=== PATIENT | female | born 1995 | race Caucasian/White ===

== ENCOUNTER 2021-09-26 14:10 | Observation (INO) | payer OTHER ==
[~2021-09-26] VITALS: Ht 177.8 cm; Wt 117.9 kg
[2021-09-26] MEDS ORDERED: PNV1TABL5 PO (15:12)
[2021-09-26] MEDS ORDERED: ASPI-1749 PO (15:12)
[2021-09-26] MEDS ORDERED: TRA200 PO (15:12)
[2021-09-26 15:52] VITALS: BP 117/57
== END 2021-09-26 15:35 | disposition home or self-care (01) ==
LOC: MLD 14:10
PROVIDERS: ADMIT Obstetrics & Gynecology; ATTEND Obstetrics & Gynecology
DX: O36.8120 Decreased fetal movements, second trimester, not applicable or unspecified (principal); Z20.822 Contact with and (suspected) exposure to COVID-19; Z3A.23 23 weeks gestation of pregnancy
CPT/HCPCS: 59025; 81000; 87426; G0378

== ENCOUNTER 2021-12-02 20:20 | Observation (INO) | payer OTHER ==
[~2021-12-02] VITALS: Ht 177.8 cm; Wt 118.8 kg
[~2021-12-02 20:20] MED LIST: ASPI-1749 PO; PNV1TABL5 PO; TRA200 PO
[2021-12-02 21:02] VITALS: BP 126/64
== END 2021-12-02 22:45 | disposition home or self-care (01) ==
LOC: MLD 20:20
PROVIDERS: ADMIT Obstetrics & Gynecology; ATTEND Obstetrics & Gynecology
DX: O99.891 Other specified diseases and conditions complicating pregnancy (principal); Z20.822 Contact with and (suspected) exposure to COVID-19; M54.50 Low back pain, unspecified; O36.8130 Decreased fetal movements, third trimester, not applicable or unspecified; Z3A.32 32 weeks gestation of pregnancy
CPT/HCPCS: 59025; 76819; 81000; 87426; G0378; Q0092

== ENCOUNTER 2021-12-14 14:10 | Observation (INO) | payer OTHER ==
[~2021-12-14] VITALS: Ht 177.8 cm; Wt 118.4 kg
[2021-12-14 15:22] LABS: BASOPHILS % (AUTO) 0.5 % (0.0-2.0); EOSINOPHILS # (AUTO) 0.1 K/uL (0-0.4); EOSINOPHILS % (AUTO) 0.8 % (0.0-4.0); HEMATOCRIT 32.9 % (36-48); LYMPHOCYTES # (AUTO) 1.3 K/uL (2.5-16.5); LYMPHOCYTES % (AUTO) 18.4 % (20.5-51.1); MEAN CORPUSCULAR HEMOGLOBIN 28 pg (27-31); MEAN CORPUSCULAR HGB CONC 33 g/dL (33-37); MEAN CORPUSCULAR VOLUME 85.1 fL (80-94); MONOCYTES # (AUTO) 0.4 K/uL (0.8-1.0); MONOCYTES % (AUTO) 5.1 % (1.7-9.3); NEUTROPHILS # (AUTO) 5.5 K/uL (1.8-7.7); NEUTROPHILS % (AUTO) 75.2 % (42.2-75.2); PLATELET COUNT (AUTO) 227 K/uL (140-450); RED BLOOD CELL COUNT(AUTO) 3.87 MIL/uL (4.20-5.40); RED CELL DISTRIBUTION WIDTH 14.2 % (11.6-13.7); WHITE BLOOD COUNT (AUTO) 7.3 K/uL (4.8-10.8)
[2021-12-14 15:23] VITALS: BP 121/59
[2021-12-14 15:33] LABS: APPEARANCE,URINE CLEAR (CLEAR); BILIRUBIN,URINE NEGATIVE (NEGATIVE); BLOOD, URINE NEGATIVE (NEGATIVE); COLOR,URINE YELLOW (YELLOW); LEUKOCYTE ESTERASE ,URINE NEGATIVE (NEGATIVE); NITRITE, URINE NEGATIVE (NEGATIVE); UGLUCOSE NEGATIVE (NEGATIVE)
[2021-12-14 15:47] LABS: PROTHROMBIN TIME 9.9 secs (10.8-13.4)
[2021-12-14 15:49] LABS: ALBUMIN 2.9 g/dL (3.4-5.0); ANION GAP 15.5 (8-16); CARBON DIOXIDE 21.3 mmol/L (21-32); CREATININE 0.5 mg/dL (0.6-1.3); POTASSIUM 3.8 mmol/L (3.5-5.1); TOTAL BILIRUBIN 0.2 mg/dL (0.0-1.0)
== END 2021-12-14 16:30 | disposition home or self-care (01) ==
LOC: MLD 14:10
PROVIDERS: ADMIT Obstetrics & Gynecology; ATTEND Obstetrics & Gynecology
DX: O13.3 Gestational [pregnancy-induced] hypertension without significant proteinuria, third trimester (principal); Z20.822 Contact with and (suspected) exposure to COVID-19; O99.013 Anemia complicating pregnancy, third trimester; D64.9 Anemia, unspecified; O99.283 Endocrine, nutritional and metabolic diseases complicating pregnancy, third trimester; E88.09 Other disorders of plasma-protein metabolism, not elsewhere classified; Z3A.33 33 weeks gestation of pregnancy
CPT/HCPCS: 36415; 80053; 81003; 82570; 84550; 85025; 85384; 85610; 85730; 87426; G0378; 59025

== ENCOUNTER 2022-01-14 16:30 | Inpatient (IN) | payer OTHER ==
[~2022-01-14] VITALS: Ht 177.8 cm; Wt 117.9 kg
[2022-01-14] MEDS ORDERED: METHYLERGONOVINE 0.2 MG/ML AMP IM PRN (16:50)
[2022-01-14] MEDS ORDERED: CARBOPROST 250 MCG/ML AMP IM PRN (16:50)
[2022-01-14 17:24] LABS: APPEARANCE,URINE CLEAR (CLEAR); BILIRUBIN,URINE NEGATIVE (NEGATIVE); BLOOD, URINE NEGATIVE (NEGATIVE); COLOR,URINE YELLOW (YELLOW); LEUKOCYTE ESTERASE ,URINE NEGATIVE (NEGATIVE); NITRITE, URINE NEGATIVE (NEGATIVE); UGLUCOSE NEGATIVE (NEGATIVE)
[2022-01-14 17:25] LABS: BASOPHILS % (AUTO) 0.5 % (0.0-2.0); EOSINOPHILS % (AUTO) 0.2 % (0.0-4.0); HEMATOCRIT 33.4 % (36-48); HEMOGLOBIN 11.1 g/dL (12.0-16.0); LYMPHOCYTES # (AUTO) 1.3 K/uL (2.5-16.5); LYMPHOCYTES % (AUTO) 17.4 % (20.5-51.1); MEAN CORPUSCULAR HEMOGLOBIN 29 pg (27-31); MEAN CORPUSCULAR HGB CONC 33 g/dL (33-37); MEAN CORPUSCULAR VOLUME 86.1 fL (80-94); MONOCYTES # (AUTO) 0.3 K/uL (0.8-1.0); MONOCYTES % (AUTO) 4.1 % (1.7-9.3); NEUTROPHILS # (AUTO) 5.6 K/uL (1.8-7.7); NEUTROPHILS % (AUTO) 77.8 % (42.2-75.2); PLATELET COUNT (AUTO) 148 K/uL (140-450); RED BLOOD CELL COUNT(AUTO) 3.88 MIL/uL (4.20-5.40); RED CELL DISTRIBUTION WIDTH 14.5 % (11.6-13.7); WHITE BLOOD COUNT (AUTO) 7.2 K/uL (4.8-10.8)
[2022-01-14 17:32] VITALS: BP 126/61
[2022-01-14 17:38] LABS: PROTHROMBIN TIME 9.3 secs (10.8-13.4)
[2022-01-14 17:45] LABS: ALBUMIN 3.1 g/dL (3.4-5.0); ANION GAP 15.2 (8-16); CARBON DIOXIDE 22.4 mmol/L (21-32); CREATININE 0.6 mg/dL (0.6-1.3); POTASSIUM 3.6 mmol/L (3.5-5.1); TOTAL BILIRUBIN 0.3 mg/dL (0.0-1.0)
[2022-01-14] MEDS: LACTATED RINGERS 1,000 ML IV SCH (18:15)
[2022-01-14] MEDS: MISOPROSTOL 25 MCG TAB VG SCH (18:53)
[2022-01-15] MEDS: MISOPROSTOL 25 MCG TAB VG SCH ×3 (01:24→20:08)
[2022-01-15] MEDS: LACTATED RINGERS 1,000 ML IV SCH ×2 (01:28→09:22)
[2022-01-15] MEDS ORDERED: LABETALOL 200 MG TAB ONE (09:15)
[2022-01-15] MEDS: LABETALOL 200 MG TAB PO SCH (20:57)
[2022-01-16] MEDS: LACTATED RINGERS 1,000 ML IV SCH ×6 (01:03→23:35)
[2022-01-16] MEDS ORDERED: OXYTOCIN 20 UNITS/LR PREMIX 1,000 ML IV ONE (08:30)
[2022-01-16] MEDS: OXYTOCIN 20 UNITS in LACTATED RINGERS 1,000 ML IV SCH (08:42)
[2022-01-16] MEDS: LABETALOL 200 MG TAB PO SCH ×2 (09:38→21:06)
--- NOTE | 2022-01-16 10:48 | NUR ---
PATIENT HAS BEEN SCREENED AND CATEGORIZED LOW NUTRITION RISK. PATIENT WILL BE SEEN WITHIN 7 DAYS OF ADMISSION. 01/14/22-01/21/[address]
[2022-01-17] MEDS ORDERED: MORPHINE SULFATE 10 MG/ML VIAL ONE ×2 (02:19→21:50)
[2022-01-17] MEDS: ONDANSETRON 4 MG/2 ML VIAL IVP PRN ×2 (02:40→21:59)
[2022-01-17] MEDS: LACTATED RINGERS 1,000 ML IV SCH ×2 (07:25→16:23)
[2022-01-17] MEDS: LABETALOL 200 MG TAB PO SCH ×2 (09:32→20:59)
[2022-01-17] MEDS ORDERED: OXYTOCIN 20 UNITS/LR PREMIX 1,000 ML IV ONE (18:38)
[2022-01-17] MEDS: OXYTOCIN 20 UNITS in LACTATED RINGERS 1,000 ML IV SCH (19:00)
[2022-01-17] MEDS: MORPHINE SULFATE 5 MG/ML VIAL IVP PRN (22:00)
[2022-01-18] MEDS: LACTATED RINGERS 1,000 ML IV SCH ×3 (00:47→17:59)
[2022-01-18] MEDS: LABETALOL 200 MG TAB PO SCH ×2 (09:32→21:32)
[2022-01-18] MEDS ORDERED: ROPIVACAINE 0.2%/NS PREMIX 200 ML EPI ONE ×2 (09:41→21:54)
[2022-01-18] MEDS ORDERED: fentaNYL citrate 0.05 MG/ML VIAL ONE ×2 (09:42→22:56)
[2022-01-18] MEDS ORDERED: OXYTOCIN 20 UNITS/LR PREMIX 1,000 ML IV ONE (14:04)
[2022-01-18] MEDS: OXYTOCIN 20 UNITS in LACTATED RINGERS 1,000 ML IV SCH (14:16)
[2022-01-19] MEDS: LACTATED RINGERS 1,000 ML IV SCH ×3 (01:15→17:40)
[2022-01-19] MEDS: ONDANSETRON 4 MG/2 ML VIAL IVP PRN ×2 (03:20→09:17)
[2022-01-19] MEDS ORDERED: ROPIVACAINE 0.2%/NS PREMIX 200 ML EPI ONE ×2 (04:53→11:53)
[2022-01-19] MEDS ORDERED: MORPHINE SULFATE 10 MG/ML VIAL ONE (09:07)
[2022-01-19] MEDS: MORPHINE SULFATE 5 MG/ML VIAL IVP PRN (09:21)
[2022-01-19] MEDS: LABETALOL 200 MG TAB PO SCH (09:50)
[2022-01-19] MEDS ORDERED: LIDOCAINE MPF 1% 10 MG/ML VIAL INJ SCH (19:40)
[2022-01-19] MEDS ORDERED: METHYLERGONOVINE 0.2 MG/ML AMP IM PRN (20:05)
[2022-01-19] MEDS ORDERED: oxyCODONE/APAP 5/325 MG 1 TAB TAB PO PRN (20:05)
[2022-01-19] MEDS ORDERED: OXYTOCIN 10 UNITS/ML VIAL IM PRN (20:05)
[2022-01-19] MEDS ORDERED: HYDROcodone/APAP 5/325 MG 1 TAB TAB PO PRN (20:05)
[2022-01-19] MEDS ORDERED: BENZOCAINE/MENTHOL 20%-0.5% 60 GM CAN TP PRN (20:05)
[2022-01-19] MEDS ORDERED: bisacodyL 5 MG TABEC PO SCH (21:00)
[2022-01-19] MEDS ORDERED: LIDOCAINE 1% 500 MG/50 ML VIAL ONE (21:54)
[2022-01-19] MEDS: IBUPROFEN 600 MG TAB PO PRN (23:13)
[2022-01-20 05:51] LABS: HEMATOCRIT 32.8 % (36-48); HEMOGLOBIN 10.8 g/dL (12.0-16.0)
[2022-01-20] MEDS ORDERED: LABETALOL 200 MG TAB PO SCH (09:00)
[2022-01-20] MEDS: IBUPROFEN 600 MG TAB PO PRN ×2 (11:14→20:59)
[2022-01-21] MEDS: IBUPROFEN 600 MG TAB PO PRN ×3 (05:34→17:11)
--- NOTE | 2022-01-21 10:54 | NUR ---
01/21/22 RD INITIAL ASSESSMENT COMPLETED PLEASE REFER TO NUTRITION ASSESSMENT UNDER CARE ACTIVITY FOR ESTIMATED NUTRITIONAL NEEDS. 1. CONTINUE REGULAR DIET TOLERATED 2. RD TO FOLLOW-UP 7 DAYS, LOW RISK JEAN CALLES RD
== END 2022-01-21 21:31 | disposition home or self-care (01) | DRG 560 ==
LOC: MLD 16:30 → MFCC 01-19 21:53
PROVIDERS: ADMIT Obstetrics & Gynecology; ATTEND Obstetrics & Gynecology
PROC: 10E0XZZ Delivery of Products of Conception, External Approach (ICD-10-PCS; principal; 2022-01-16)
PROC: 0HQ9XZZ Repair Perineum Skin, External Approach (ICD-10-PCS; 2022-01-16)
PROC: 3E0R3BZ Introduction of Anesthetic Agent into Spinal Canal, Percutaneous Approach (ICD-10-PCS; 2022-01-16)
PROC: 00HU33Z Insertion of Infusion Device into Spinal Canal, Percutaneous Approach (ICD-10-PCS; 2022-01-16)
PROC: 3E033VJ Introduction of Other Hormone into Peripheral Vein, Percutaneous Approach (ICD-10-PCS; 2022-01-16)
PROC: 10907ZC Drainage of Amniotic Fluid, Therapeutic from Products of Conception, Via Natural or Artificial Opening (ICD-10-PCS; 2022-01-16)
DX: O10.92 Unspecified pre-existing hypertension complicating childbirth (principal); Z37.0 Single live birth; D64.9 Anemia, unspecified; O70.0 First degree perineal laceration during delivery; O90.81 Anemia of the puerperium; Z20.822 Contact with and (suspected) exposure to COVID-19; Z79.82 Long term (current) use of aspirin; Z79.899 Other long term (current) drug therapy; Z3A.38 38 weeks gestation of pregnancy
CPT/HCPCS: 36415; 51702; 59200; 59409; 76815; 80053; 81003; 85018; 85025; 85610; 85730; 86592; 86762; 86886; 86900; 86901; 87340; J2001; J2270; J2405; J2590; J2795; J3010; J7120; Q0092